=== PATIENT | female | born 1985 | race Caucasian/White ===

== ENCOUNTER 2020-04-26 06:07 | Day surgery (SDC) | payer OTHER, SELFPAY ==
[~2020-04-26] VITALS: Ht 165.1 cm; Wt 56.2 kg
[2020-04-26 06:41] VITALS: BP 102/64
[2020-04-26 10:41] VITALS: BP 109/69
== END 2020-04-26 09:40 | disposition home or self-care (01) ==
LOC: DS 06:07 → OR 07:30 → DS 07:30 → OR 09:00 → DS 09:40
PROVIDERS: ATTEND Obstetrics & Gynecology
DX: N87.1 Moderate cervical dysplasia (principal); T83.32XA Displacement of intrauterine contraceptive device, initial encounter; Z98.891 History of uterine scar from previous surgery; Y83.8 Other surgical procedures as the cause of abnormal reaction of the patient, or of later complication, without mention of misadventure at the time of the procedure
CPT/HCPCS: J2250; J3010